=== PATIENT | male | born 1975 | race American Indian/Alaskan Native ===

== ENCOUNTER 2022-07-06 22:25 | Observation (INO) ==
[2022-07-06] MEDS ORDERED: 0.9 % SODIUM CHLORIDE 1,000 ML IV ONE (22:38)
[2022-07-06] MEDS ORDERED: KETOROLAC 30 MG/ML VIAL IV ONE (22:48)
--- NOTE | 2022-07-06 22:48 | Emergency Department Note ---
Skin/Abscess/FB HPI General Chief complaint: Skin/Abscess/Rash Stated complaint: needs abscess drained Time Seen by Provider: 07/06/22 22:29 Source: patient Mode of arrival: ambulatory Limitations: no limitations History of Present Illness HPI Narrative: Narrative: Patient presents ED with complaints of an abscess on his neck as been worsening over the last week. Patient reports that this is chronic for him and had to have it drain but it has gotten bigger now and is causing him discomfort. He rates the pain 7/10. States he cannot sleep. He states that last time he was taken to surgery by Dr. Marrero patient denies fever, chills, nausea, vomiting, abdominal pain, extremity weakness, extremity numbness, bowel or bladder incontinence. Patient denies any other alleviating or aggravating factors.ed. Related Data Home Medications Medication Instructions Recorded Confirmed levothyroxine 88 mcg tablet 1 tab PO QDAY 08/14/21 09/08/21 (Synthroid) metformin 500 mg tablet,extended 1 tab PO QDAY 08/14/21 09/08/21 release 24 hr doxycycline hyclate 100 mg capsule 100 mg PO BID 09/26/21 09/26/21 Previous Rx's Medication Instructions Recorded adalimumab 40 mg/0.4 mL See Rx Instructions subcut 01/06/22 subcutaneous pen kit (Humira(CF) .COMPLEX #12 ea Pen) sulfamethoxazole 800 1 tab PO BID 14 days #28 tabs 07/07/22 mg-trimethoprim 160 mg tablet (Bactrim DS) Allergies Allergy/AdvReac Type Severity Reaction Status Date / Time No Known Drug Allergies Allergy Verified 03/12/22 12:04 Review of Systems ROS ROS Narrative: Narrative: All systems ED: reviewed and negative except as stated. PFS Narrative Patient History Narrative: Narrative: Medical/Surgical/Family History All Active Problems (Updated 07/07/22 @ 01:17 by Gokul Rogers DO) Dactylitis (Chronic) Pain of right hand (Chronic) Swelling of right hand (Chronic) Stiffness in joint (Chronic) Weakness (Chronic) Muscle ache (Chronic) Muscle cramping (Chronic) Rash (Chronic) Bruising (Chronic) Itching (Chronic) Change in mole (Chronic) Skin lesion (Chronic) [place] (Chronic) Abscess of neck (Chronic) Decreased range of motion (Chronic) Scarring of skin (Chronic) Inflammatory arthritis (Acute) Polyarthralgia (Acute) Back pain (Acute) Spondyloarthritis (Chronic) Encounter for long-term current use of high risk medication (Chronic) custodial current use of systemic steroids (Acute) Hidradenitis suppurativa (Chronic) Trigger finger (Acute) Hidradenitis suppurativa (Chronic) High blood pressure (Acute) Chest pain, non-cardiac (Acute) Abscess, neck (Acute) Sepsis (Acute) Medical History Abscess of back Abscess of neck Ankylosing spondylitis Back pain Bruising Change in mole [place] Multiple Dactylitis Decreased range of motion Right Hand Encounter for long-term current use of high risk medication Hidradenitis suppurativa Inflammatory arthritis Itching custodial current use of systemic steroids Muscle ache Muscle cramping Pain of right hand 1st MCP Polyarthralgia Rash Scarring of skin Contracted Tissues Skin lesion Spondyloarthritis Stiffness in joint Swelling of right hand Trigger finger Weakness Surgical History History of incision and drainage 08/14/2021-I & D of posterior neck abscess Family History Other No pertinent family history Social History Smoking Status: Current every day smoker Alcohol Intake Frequency: does not drink Substance Use: does not use Exam Narrative Narrative: Narrative: General Limitations: no limitations General appearance: Absent in distress ENT ENT: Present normal oropharynx and mucous membranes moist Expanded Neck Neck image: 1. Large area of erythema, fluctuance and tenderness to palpation consistent with abscess Respiratory Respiratory: Present normal lung sounds bilaterally; Absent respiratory distress Cardiovascular Cardiovascular: Present normal rhythm and tachycardia Extremities Extremities: Present normal inspection and normal capillary refill Neurological Neurological: Present oriented X3 and normal gait Psychiatric Psychiatric: Present normal affect and normal mood Skin Skin: Present warm (WNL) and intact Course Course Course Narrative: Patient was evaluated for concerns of an abscess on his neck. Patient had a large erythematous abscess on the posterior aspect of his neck. He was tachycardic upon arrival. EKG was obtained is unremarkable. Blood cultures were obtained. Patient was given IV fluids. His lactic acid was within normal limits. Labs revealed that patient had elevated white cell count. Patient made sepsis criteria with leukocytosis, tachycardia and source of infection. Once blood cultures were obtained patient was given IV Rocephin as well as IV and vancomycin. He was given IV Toradol for his discomfort. Ultrasound of the neck was obtained and showed that patient had a large posterior abscess measuring a pproximately 6 to 7 x 7 cm. It was my recommendation that patient have a CT of the neck. Patient refused CT of the neck stating that he is claustrophobic and he would have to be under general anesthesia to get the CT. I advised him that it is an open CT and that I could give him some anxiety medication. Patient adamantly refused stating that he will not get the CT done. I discussed the case with general surgeon on-call, Dr. Hoover, who states that he did not feel comfortable taking patient to the OR for I&D without a CT of the neck to see the possibility of involvement of underlying structures. I explained this to the patient he still refused CT. due to patient's continued refusal CT the general surgeons that we will go ahead and admit to his service and treat patient with IV antibiotics for now. Patient is amenable to being admitted to the hospital and is expressing verbal understanding agreement of plan. Reevaluation(s) Reevaluation #1: Patient remains hemodynamically stable. No new complaints at this time. Time: 23:35 Consultations Consultation #1: Case discussed with on-call surgeon, Dr. Hoover, who states that he did not feel comfortable performing I&D without a CT and recommends that patient have a CT of the neck. Time: 01:10 Vital Signs Vital signs: Vital Signs Temperature 97.4 F 07/06/22 22:26 Pulse Rate 127 H 07/06/22 22:26 Respiratory Rate 18 07/06/22 22:26 Blood Pressure 146/94 07/06/22 22:26 Pulse Oximetry (%) 97 07/06/22 22:26 Oxygen Delivery Method Room Air 07/06/22 22:26 Temperature 97.4 F 07/06/22 22:26 Pulse Rate 105 H 07/07/22 00:52 Respiratory Rate 18 07/06/22 22:26 Blood Pressure 116/86 07/06/22 23:50 Pulse Oximetry (%) 93 07/07/22 00:52 Oxygen Delivery Method Room Air 07/06/22 22:26 [facility] MDM Narrative Medical decision making narrative: Narrative: Sepsis Sepsis Identified: Yes Time Zero: 2330 Differential Diagnosis Differential Diagnosis: Soft tissue neck abscess, sepsis Medical Records Medical records reviewed: Yes I reviewed the patient's medical records. Lab Data Lab results reviewed: Yes I reviewed the patient's lab results. 07/06/22 23:31 Labs: Lab Results 07/06/22 07/06/22 07/06/22 Range/Units 23:05 23:06 23:24 WBC (4.5-11.0) K/mcL RBC (4.63-6.08) M/mcL Hgb (13.7-17.5) g/dL Hct (40.1-51.0) % POC Hct 47.0 (41-55) MCV (80.0-100.0) fL MCH (26.0-34.0) pg MCHC (31.0-36.0) g/dL RDW (11.5-14.5) % Plt Count (140-440) K/mcL MPV (8.8-12.5) fL Immature Gran % (Auto) (0.0-0.5) % Neut % (Auto) (38.0-78.0) % Lymph % (Auto) (15.5-49.0) % Hart % (Auto) (1.0-12.0) % Eos % (Auto) (0.0-7.0) % Baso % (Auto) (0.0-2.0) % Lymph # (Auto) (1.50-4.80) K/mcL Hart # (Auto) (0.10-0.90) K/mcL Eos # (Auto) (0.00-0.70) K/mcL Baso # (Auto) (0.00-0.30) K/mcL Immature Gran # (0.00-0.05) K/mcl Absolute Neutrophils (1.80-8.00) K/mcL POC VBG pH 7.41 7.43 H (7.32-7.42) POC VBG pCO2 at Temp 43.3 40.9 L (41-51) POC VBG pO2 24 L 40 (25-40) POC VBG HCO3 27.2 27.4 (24-28) POC VBG Total CO2 29.0 29.0 (25-29) POC Venous O2 Sat 44.0 77.0 H (40-70) POC VBG Base Excess 3.0 H 3.0 H (-2-2) VBG Lactic Acid 1.7 1.2 (0.5-2) POC Sodium 137 (133-145) POC Potassium 3.6 (3.3-5.1) POC Chloride 99 (96-108) POC Total CO2 28.0 (22-30) POC BUN 9 (6-20) POC Creatinine 0.7 (0.6-1.2) POC Glucose 158 H (70-105) POC WB Ioniz Calcium 1.72 H* (1.16-1.32) Total Bilirubin (0.1-1.0) mg/dL Direct Bilirubin (0-0.3) mg/dL AST (<40) U/L ALT (<40) U/L Alkaline Phosphatase (39-117) U/L Total Protein (5.9-8.4) gm/dL Albumin (3.2-5.2) gm/dL Globulin (2.2-3.7) gm/dL 07/06/22 07/06/22 Range/Units 23:29 23:31 WBC 16.6 H (4.5-11.0) K/mcL RBC 4.58 L (4.63-6.08) M/mcL Hgb 14.5 (13.7-17.5) g/dL Hct 43.8 (40.1-51.0) % POC Hct (41-55) MCV 95.6 (80.0-100.0) fL MCH 31.7 (26.0-34.0) pg MCHC 33.1 (31.0-36.0) g/dL RDW 12.5 (11.5-14.5) % Plt Count 351 (140-440) K/mcL MPV 9.8 (8.8-12.5) fL Immature Gran % (Auto) 1.0 H (0.0-0.5) % Neut % (Auto) 74.7 (38.0-78.0) % Lymph % (Auto) 15.1 L (15.5-49.0) % Hart % (Auto) 7.8 (1.0-12.0) % Eos % (Auto) 1.2 (0.0-7.0) % Baso % (Auto) 0.2 (0.0-2.0) % Lymph # (Auto) 2.51 (1.50-4.80) K/mcL Hart # (Auto) 1.30 H (0.10-0.90) K/mcL Eos # (Auto) 0.20 (0.00-0.70) K/mcL Baso # (Auto) 0.04 (0.00-0.30) K/mcL Immature Gran # 0.16 H (0.00-0.05) K/mcl Absolute Neutrophils 12.37 H (1.80-8.00) K/mcL POC VBG pH (7.32-7.42) POC VBG pCO2 at Temp (41-51) POC VBG pO2 (25-40) POC VBG HCO3 (24-28) POC VBG Total CO2 (25-29) POC Venous O2 Sat (40-70) POC VBG Base Excess (-2-2) VBG Lactic Acid (0.5-2) POC Sodium (133-145) POC Potassium (3.3-5.1) POC Chloride (96-108) POC Total CO2 (22-30) POC BUN (6-20) POC Creatinine (0.6-1.2) POC Glucose (70-105) POC WB Ioniz Calcium (1.16-1.32) Total Bilirubin 0.6 (0.1-1.0) mg/dL Direct Bilirubin < 0.2 (0-0.3) mg/dL AST 43 H (<40) U/L ALT 56 H (<40) U/L Alkaline Phosphatase 60 (39-117) U/L Total Protein 8.6 H (5.9-8.4) gm/dL Albumin 3.7 (3.2-5.2) gm/dL Globulin 4.9 H (2.2-3.7) gm/dL Radiology Data Radiology results reviewed: Yes I reviewed the patient's radiology results. Radiology results narrative: Soft tissue the neck obtained which revealed a large abscess in the posterior neck region measuring about 7 cm EKG Data EKG #1: EKG attestation: Yes I reviewed and interpreted this EKG. EKG shows normal: sinus rhythm Rate: tachycardia (122) Rhythm: NSR Cook/QRS: normal Heart block present: None ST segment elevation in: None ST segment depression in: None QTc: normal QRS morphology: Present normal Interpretation: no acute changes Core Measures AMI Core Measures Followed: Yes Discharge Plan Patient/Caregiver Discharge Instructions Pt seen by RN EXAMINER/PA only: No Clinical Impression: Abscess, neck, Sepsis Instructions: Abscess (ED) Patient Disposition: Xfer As Outpt/Obs ([facility]) Condition: Fair Follow up with: Adan Marrero MD [Physician] - 07/10/22 (Posterior neck soft tissue abscess) Daquan Carrasco ARNP [Primary Care Provider] - 07/10/22 (Neck soft tissue abscess) Prescriptions: New sulfamethoxazole-trimethoprim [Bactrim DS] 800-160 mg tablet 1 tab PO BID 14 Days Qty: 28 0RF No Action Humira(CF) Pen 40 mg/0.4 mL pen injector kit See Rx Instructions subcut .COMPLEX Qty: 12 1RF Dose Instruction: inject one - 40 mg/0.4 mL pen every 2 weeks Rx Instructions: inject one - 40 mg/0.4 mL pen every week doxycycline hyclate 100 mg capsule 100 mg PO BID levothyroxine [Synthroid] 88 mcg tablet 1 tab PO QDAY metformin 500 mg tablet extended release 24 hr 1 tab PO QDAY
[2022-07-06 23:09] LABS: POC Calcium, Ionized 1.72 (1.16-1.32); POC Creatinine 0.7 (0.6-1.2); POC Potassium 3.6 (3.3-5.1)
[2022-07-06] MEDS ORDERED: cefTRIAXone 2 GM in DEXTROSE 5% IN WATER 50 ML IV ONE (23:42)
[2022-07-06] MEDS ORDERED: VANCOMYCIN 1,000 MG in 0.9 % SODIUM CHLORIDE 250 ML IV ONE (23:44)
[2022-07-06] MEDS ORDERED: diphenhydrAMINE 50 MG/ML VIAL IV ONE (23:54)
[2022-07-07 00:13] LABS: Basophils # (Auto) 0.04 K/mcL (0.00-0.30); Basophils % (Auto) 0.2 % (0.0-2.0); Eosinophils % (Auto) 1.2 % (0.0-7.0); Hematocrit 43.8 % (40.1-51.0); Hemoglobin 14.5 g/dL (13.7-17.5); Lymphocytes # (Auto) 2.51 K/mcL (1.50-4.80); Lymphocytes % (Auto) 15.1 % (15.5-49.0); Mean Cell Volume 95.6 fL (80.0-100.0); Mean Corpuscular HGB Conc 33.1 g/dL (31.0-36.0); Mean Platelet Volume 9.8 fL (8.8-12.5); Monocytes % (Auto) 7.8 % (1.0-12.0); Neutrophils % (Auto) 74.7 % (38.0-78.0); Platelet Count 351 K/mcL (140-440); RBC 4.58 M/mcL (4.63-6.08); Red Cell Distribution Width 12.5 % (11.5-14.5); WBC 16.6 K/mcL (4.5-11.0)
[2022-07-07 00:36] LABS: ALT/SGPT 56 U/L (<40); AST/SGOT 43 U/L (<40); Albumin 3.7 gm/dL (3.2-5.2); Alkaline Phosphatase 60 U/L (39-117); Bilirubin,Direct < 0.2 mg/dL (0-0.3); Bilirubin,Total 0.6 mg/dL (0.1-1.0); Globulin 4.9 gm/dL (2.2-3.7)
--- NOTE | 2022-07-07 01:51 | Ultrasound Report ---
CLINICAL INFORMATION: Posterior neck swelling. COMPARISON: None. FINDINGS: A 7 cm complex fluid collection or, less likely, mass is seen in the posterior lower neck region. IMPRESSION: 7 cm complex fluid collection likely an abscess.. Suggest soft tissue neck CT Interpreted and Authenticated by: Adan Paredes 07/07/22
[2022-07-07] MEDS ORDERED: morphine 2 MG/ML VIAL IV ONE (02:04)
[2022-07-07] MEDS ORDERED: NICOTINE 14 MG PATCH TOPICAL ONE (02:16)
--- NOTE | 2022-07-07 02:44 | General Surgery Consult Note ---
HPI Date of Consult Consult Date: 07/07/22 Requesting physician: Gokul Rogers Primary Care Provider: LOR Ambrose Consult Narrative Patient Information: Note initiated : 07/07/22 at 2:26 am Service Date, if different from initiated Date: [] Patient: Андрей Alan 46 y/o M admitted on for needs abscess drained. Chief Complaint: [] Андрей is seen in consultation tonight with a large fluctuant recurrent abscess of the Right Posterior Neck. He has had many years of focally recurrent infections in the area related to Hidradenitis Suppurativa. 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 He chronically on Humira and Steroids for the Hidradenitis and an Inflammatory Arthritis but has stopped the Humira some time ago which he feels has resulted in recurrence of the Posterior Neck Abscess. An US was done and a CT Scan recommended which he's declined due to issues with claustrophobia. He denies cardiac or pulmonary issues. He is not on any oral anticoagulants. He has diabetes and is on Metformin. He has not yet started therapy for his recently diagnosed lymphoma. Chief complaint: Posterior Neck Abscess Reason for consult: Posterior Neck Abscess cc:: CC: Review of Systems All systems: reviewed and no additional remarkable complaints except as stated Constitutional Additional comments: see HPI EENT Additional comments: see HPI Cardiovascular Additional comments: no chest pains Respiratory Additional comments: no cough or SOB Gastrointestinal Additional comments: no issues Genitourinary Additional comments: no changes Integumentary Additional comments: no changes Neurological Additional comments: no changes Hematologic/Lymphatic Additional comments: see HPI PFSH PFSH All Active Problems Dactylitis (Chronic) Pain of right hand (Chronic) Swelling of right hand (Chronic) Stiffness in joint (Chronic) Weakness (Chronic) Muscle ache (Chronic) Muscle cramping (Chronic) Rash (Chronic) Bruising (Chronic) Itching (Chronic) Change in mole (Chronic) Skin lesion (Chronic) [place] (Chronic) Abscess of neck (Chronic) Decreased range of motion (Chronic) Scarring of skin (Chronic) Inflammatory arthritis (Acute) Polyarthralgia (Acute) Back pain (Acute) Spondyloarthritis (Chronic) Encounter for long-term current use of high risk medication (Chronic) half-way current use of systemic steroids (Acute) Hidradenitis suppurativa (Chronic) Trigger finger (Acute) Hidradenitis suppurativa (Chronic) High blood pressure (Acute) Chest pain, non-cardiac (Acute) Abscess, neck (Acute) Sepsis (Acute) Medical History Abscess of back Abscess of neck Ankylosing spondylitis Back pain Bruising Change in mole [place] Multiple Dactylitis Decreased range of motion Right Hand Encounter for long-term current use of high risk medication Hidradenitis suppurativa Inflammatory arthritis Itching half-way current use of systemic steroids Muscle ache Muscle cramping Pain of right hand 1st MCP Polyarthralgia Rash Scarring of skin Contracted Tissues Skin lesion Spondyloarthritis Stiffness in joint Swelling of right hand Trigger finger Weakness Surgical History History of incision and drainage 08/14/2021-I & D of posterior neck abscess Family History Other No pertinent family history Social History marital status: single smoking status: Current every day smoker alcohol intake frequency: does not drink substance use type: does not use MEDS/ALLERGIES Home Medications and Allergies Home Medications Medication Instructions Recorded Confirmed Type levothyroxine 88 mcg tablet 1 tab PO QDAY 08/14/21 09/08/21 History (Synthroid) metformin 500 mg tablet,extended 1 tab PO QDAY 08/14/21 09/08/21 History release 24 hr doxycycline hyclate 100 mg capsule 100 mg PO BID 09/26/21 09/26/21 History adalimumab 40 mg/0.4 mL See Rx Instructions subcut 01/06/22 Rx subcutaneous pen kit (Humira(CF) .COMPLEX #12 ea Pen) sulfamethoxazole 800 1 tab PO BID 14 days #28 tabs 07/07/22 Rx mg-trimethoprim 160 mg tablet (Bactrim DS) Allergies Allergy/AdvReac Type Severity Reaction Status Date / Time No Known Drug Allergies Allergy Verified 03/12/22 12:04 Physical Examination Vital Signs Vital signs: Temp Pulse Resp BP Pulse Ox O2 Del Method 97.4 F 106 H 18 139/95 94 Room Air 07/06/22 22:26 07/07/22 01:52 07/06/22 22:26 07/07/22 01:52 07/07/22 01:52 07/07/22 01:50 General physical appearance General physical exam: other (non toxic, NAD, fully conversant ) Eyes Eye exam: normal ocular movement ENT ENT exam: other (normal facial exam ) Head Head exam IM: Present atraumatic and normocephalic Neck Neck exam: other (there is chronic scarring across the posterior neck with a large fluctuant area of the Right Neck Base, there is no active drainage) Cardiovascular Cardiovascular exam IM: Present normal rate and rhythm Respiratory Respiratory exam: normal respiratory effort Abdomen Abdomen: Present soft and non tender Integumentary Integumentary: Present other (neck skin changes as noted, otherwise normal appearing intact skin ) Neurologic Neurologic: Present other (grossly intact ) Psychiatric Psychiatric: Present oriented to time, oriented to person and oriented to place Results Labs 07/06/22 23:31 Labs: Abnormal lab results 07/06/22 07/06/22 07/06/22 Range/Units 23:05 23:06 23:24 WBC (4.5-11.0) K/mcL RBC (4.63-6.08) M/mcL Immature Gran % (Auto) (0.0-0.5) % Lymph % (Auto) (15.5-49.0) % Clark # (Auto) (0.10-0.90) K/mcL Immature Gran # (0.00-0.05) K/mcl Absolute Neutrophils (1.80-8.00) K/mcL POC VBG pH 7.43 H (7.32-7.42) POC VBG pCO2 at Temp 40.9 L (41-51) POC VBG pO2 24 L (25-40) POC Venous O2 Sat 77.0 H (40-70) POC VBG Base Excess 3.0 H 3.0 H (-2-2) POC Glucose 158 H (70-105) POC WB Ioniz Calcium 1.72 H* (1.16-1.32) AST (<40) U/L ALT (<40) U/L Total Protein (5.9-8.4) gm/dL Globulin (2.2-3.7) gm/dL 07/06/22 07/06/22 Range/Units 23:29 23:31 WBC 16.6 H (4.5-11.0) K/mcL RBC 4.58 L (4.63-6.08) M/mcL Immature Gran % (Auto) 1.0 H (0.0-0.5) % Lymph % (Auto) 15.1 L (15.5-49.0) % Clark # (Auto) 1.30 H (0.10-0.90) K/mcL Immature Gran # 0.16 H (0.00-0.05) K/mcl Absolute Neutrophils 12.37 H (1.80-8.00) K/mcL POC VBG pH (7.32-7.42) POC VBG pCO2 at Temp (41-51) POC VBG pO2 (25-40) POC Venous O2 Sat (40-70) POC VBG Base Excess (-2-2) POC Glucose (70-105) POC WB Ioniz Calcium (1.16-1.32) AST 43 H (<40) U/L ALT 56 H (<40) U/L Total Protein 8.6 H (5.9-8.4) gm/dL Globulin 4.9 H (2.2-3.7) gm/dL Diabetes panel 07/06/22 Range/Units 23:29 AST 43 H (<40) U/L ALT 56 H (<40) U/L Alkaline Phosphatase 60 (39-117) U/L Total Protein 8.6 H (5.9-8.4) gm/dL Albumin 3.7 (3.2-5.2) gm/dL Calcium panel 07/06/22 Range/Units 23:29 Albumin 3.7 (3.2-5.2) gm/dL Adrenal panel 07/06/22 Range/Units 23:29 Total Bilirubin 0.6 (0.1-1.0) mg/dL AST 43 H (<40) U/L ALT 56 H (<40) U/L Alkaline Phosphatase 60 (39-117) U/L Total Protein 8.6 H (5.9-8.4) gm/dL Albumin 3.7 (3.2-5.2) gm/dL All other labs normal. A/P Assessment and plan (1) Abscess of neck: Assessment and plan: Large fluctuant Posterior Neck Abscess Incision and Drainage is recommended and discussed at length CT scan is also recommended and rationale for recommendation in terms of assisting with adequate drainage and operative planning is reviewed but declined Risks, benefits, potential complications and alternative treatment plans are all reviewed at length and he is agreeable to the plan of coming in overnight for IV ABs with plans to proceed to the OR AL tomorrow Status: Chronic Time Spent With Patient Time: Total time spent is greater than 50% in coordination of care (as documented) at patient's floor/unit and/or counseling patient:
[2022-07-07] MEDS: DEXTROSE 5%-LR 1,000 ML IV SCH ×2 (03:05→16:33)
[2022-07-07] MEDS: HYDROmorphone 0.5 MG/0.5 ML SYRINGE IV PRN ×3 (05:36→08:56)
--- NOTE | 2022-07-07 09:33 | EKG ---
[facility] Test Date: 2022-07-06 Pat Name: Андрей Alan Department: ED Room: Gender: Male [employer]: SE : 1975 Requested By: Gokul Rogers Order Number: [id number] Reading MD: Mj Wilkinson Measurements Intervals [place] Rate: 122 P: 66 WI: 153 QRS: 40 QRSD: 90 T: 38 QT: 303 QTc: 432 Interpretive Statements Sinus tachycardia Electronically Signed On 07-07-2022 9:33:08 PST by Mj Wilkinson /store/M0/[id number]/[id number].pdf
[2022-07-07] MEDS ORDERED: KETAMINE 50 MG/ML Syringe (ANEST) IV ONE (10:07)
[2022-07-07] MEDS ORDERED: LIDOCAINE HCL/PF 100 MG/5 ML SYRINGE IV ONE (10:07)
[2022-07-07] MEDS ORDERED: GLYCOPYRROLATE 0.2 MG/ML VIAL IV ONE (10:07)
[2022-07-07] MEDS ORDERED: DEXAMETHASONE 10 MG/ML VIAL ONE (10:07)
[2022-07-07] MEDS ORDERED: MIDAZOLAM 2 MG/2 ML VIAL ONE (10:07)
[2022-07-07] MEDS ORDERED: PHENYLephrine 1 MG/10 ML SYRINGE (ANEST) ONE (10:07)
[2022-07-07] MEDS ORDERED: KETOROLAC 15 MG/ML VIAL ONE (10:07)
[2022-07-07] MEDS ORDERED: fentaNYL 100 MCG/2 ML VIAL IV ONE (10:07)
[2022-07-07] MEDS ORDERED: ONDANSETRON 4 MG/2 ML VIAL ONE (10:07)
[2022-07-07] MEDS ORDERED: PROPOFOL 200 MG/20 ML VIAL IV ONE (10:07)
[2022-07-07] MEDS ORDERED: HYDROmorphone 0.5 MG/0.5 ML SYRINGE IV PRN (10:27)
[2022-07-07] MEDS ORDERED: LACTATED RINGERS 250 ML IV PRN (10:27)
[2022-07-07] MEDS ORDERED: ACETAMINOPHEN 1,000 MG/100 ML BAG IV ONE (10:27)
[2022-07-07] MEDS ORDERED: METHOCARBAMOL 1,000 MG/10 ML VIAL IV PRN (10:27)
[2022-07-07] MEDS ORDERED: NALOXONE HCL 0.4 MG/ML VIAL IV PRN (10:27)
[2022-07-07] MEDS ORDERED: FLUMAZENIL 0.1 MG/ML ML IV PRN (10:27)
[2022-07-07] MEDS ORDERED: IPRATROPIUM/ALBUTEROL 3 ML AMPUL.NEB NEB PRN (10:27)
[2022-07-07] MEDS ORDERED: fentaNYL 100 MCG/2 ML VIAL IV PRN (10:27)
[2022-07-07] MEDS ORDERED: MEPERIDINE 25 MG/ML VIAL IV PRN (10:27)
[2022-07-07] MEDS ORDERED: METOPROLOL TARTRATE 5 MG/5 ML VIAL IV PRN (10:27)
[2022-07-07] MEDS ORDERED: LABETALOL 5 MG/ML ML IV PRN (10:27)
[2022-07-07] MEDS ORDERED: ONDANSETRON 4 MG/2 ML VIAL IV PRN (10:27)
[2022-07-07] MEDS ORDERED: LACTATED RINGERS 1,000 ML IV SCH (10:30)
--- NOTE | 2022-07-07 10:56 | Brief Operative Note ---
Brief Operative Note Date of procedure: 07/07/22 Pre-op diagnosis: Large multifocal posterior neck abscess Post-op diagnosis: same Procedure: Incision and drainage of large multifocal neck abscess Grafts/Implants: No Anesthesia: GETA Findings: large multifocal multiloculated posterior neck abscess with drainage of roughly 100cc of foul smelling pus Complications: none Surgeon: Elie Hoover Estimated blood loss (cc): 20 Specimens Removed/Pathology: other (fluid for gram stain and culture ) Condition: stable Disposition: PACU
[2022-07-07] MEDS ORDERED: oxyCODONE HCL 5 MG TABLET PO PRN (11:10)
[2022-07-07] MEDS ORDERED: SULFAMETHOXAZOLE/TRIMETHOPRIM 1 TABLET PO SCH (11:15)
[2022-07-08] MEDS ORDERED: metFORMIN 500 MG TAB.XL.24H PO SCH (08:00)
[2022-07-08] MEDS ORDERED: LEVOTHYROXINE 88 MCG TABLET PO SCH (09:00)
--- NOTE | 2022-07-13 08:36 | Operative Note ---
DATE OF OPERATION: 07/07/2022 PREOPERATIVE DIAGNOSIS: Large, complicated, multiloculated posterior neck abscess. POSTOPERATIVE DIAGNOSIS: Large, complicated, multiloculated posterior neck abscess. OPERATIVE PROCEDURE: Incision and drainage of complicated, multiloculated posterior neck abscess. SURGEON: Elie Hoover M.D. ANESTHESIA: General. POSITION: Left lateral decubitus. PREOPERATIVE MEDICATION: Zosyn 3.375 grams IV. INDICATIONS FOR PROCEDURE: The patient is a 46-year-old male who is roughly a year out or so from a prior I and D of a posterior neck abscess. He has had recurrent bouts of this over the course of his lifetime from what he describes as chronic hidradenitis of the posterior neck. He does not have it in any other location, but has had repetitive issues with abscess formation on the back of his neck. He presented to the emergency room late at night in a lot of pain and discomfort with a very large area of swelling and had some fluctuation over the posterior neck. Ultrasound was performed, which demonstrated a large, complicated-appearing abscess in the soft tissues. CT scan was advised, but he declined. We were asked to see him in consultation and agreed to admit him to the hospital for incision and drainage the following morning. Risks, benefits, potential complications, and alternative treatment options were all discussed at length. He understood our plan and the rationale for it and gave full informed consent and wished to proceed. PROCEDURE IN DETAIL: The patient was taken to the OR where he was placed in a left lateral decubitus position after he was placed under general anesthesia and an LMA was applied. The area of the posterior neck was broadly prepped and draped in a sterile fashion. There was a central area of necrosis that was roughly 3 x 3 cm in dimension in the area of maximal fluctuance in the right posterior neck. This was excised sharply to a large gush of purulent material and debris, and we evacuated 100 to 200 mL of pus out of the area. Cultures were taken and sent as well. There were multiple loculations that were broken up bluntly and we irrigated the area out extensively following this. Several additional countertraction sites were identified and noted and separately packed open and then we packed the main abscess cavity with a moistened Kerlix and a single piece for extraction later after assuring that all active bleeding or hemorrhage had been controlled and some Merlene powder was applied topically as well. The patient was awakened, the LMA was removed, and he was transported to the recovery in good condition. He tolerated the procedure well. ESTIMATED BLOOD LOSS: Roughly 25 to 50 mL. DRAINS: None. Wound was packed open as discussed. Cultures are pending. BW:roly Job ID: [id number] Doc ID: [id number] Elie Hoover M.D.
== END 2022-07-07 16:50 | disposition home or self-care (01) ==
LOC: MEDSUR 22:25 → ED 22:25 → MEDSUR 07-07 02:53
PROVIDERS: ADMIT Surgery Surgical Critical Care; ATTEND Surgery Surgical Critical Care

== ENCOUNTER 2024-01-13 23:25 | Observation (INO) ==
[2024-01-13] MEDS ORDERED: IOPAMIDOL 100 ML BOTTLE IV ONE (23:26)
[2024-01-14] MEDS: LORazepam 2 MG/ML VIAL IV ONE (00:10)
[2024-01-14 00:18] LABS: Basophils # (Auto) 0.02 K/mcL (0.00-0.30); Basophils % (Auto) 0.2 % (0.0-2.0); Eosinophils # (Auto) 0.24 K/mcL (0.00-0.70); Eosinophils % (Auto) 2.1 % (0.0-7.0); Hematocrit 46.7 % (40.1-51.0); Hemoglobin 15.8 g/dL (13.7-17.5); Lymphocytes # (Auto) 2.46 K/mcL (1.50-4.80); Lymphocytes % (Auto) 21.3 % (15.5-49.0); Mean Cell Volume 95.7 fL (80.0-100.0); Mean Corpuscular HGB Conc 33.8 g/dL (31.0-36.0); Mean Platelet Volume 9.2 fL (8.8-12.5); Monocytes # (Auto) 0.88 K/mcL (0.10-0.90); Monocytes % (Auto) 7.6 % (1.0-12.0); Neutrophils % (Auto) 68.5 % (38.0-78.0); Platelet Count 277 K/mcL (140-440); RBC 4.88 M/mcL (4.63-6.08); Red Cell Distribution Width 12.3 % (11.5-14.5); WBC 11.5 K/mcL (4.5-11.0)
[2024-01-14 00:43] LABS: ALT/SGPT 19 U/L (<40); AST/SGOT 16 U/L (<40); Albumin 4.2 gm/dL (3.2-5.2); Albumin/Globulin Ratio 1.2 (1.0-2.3); Alkaline Phosphatase 55 U/L (39-117); Bilirubin,Total 0.3 mg/dL (0.1-1.0); Blood Urea Nitrogen 12 mg/dL (6-20); Calcium 9.1 mg/dL (8.6-10.4); Carbon Dioxide 23 mmol/L (22-30); Chloride 105 mmol/L (96-108); Globulin 3.5 gm/dL (2.2-3.7); Glomerular Filtration Rate 110; Glucose 142 mg/dL (70-105); Potassium 3.5 mmol/L (3.3-5.1); Sodium 141 mmol/L (133-145)
[2024-01-14] MEDS: morphine 2 MG/ML VIAL IV PRN (01:25)
[2024-01-14] MEDS: ONDANSETRON 4 MG/2 ML VIAL IV ONE (01:26)
[2024-01-14] MEDS: 0.9 % SODIUM CHLORIDE 1,000 ML IV SCH (03:12)
[2024-01-14] MEDS: VANCOMYCIN 1 GM VIAL IP SCH (03:12)
[2024-01-14] MEDS: CEFEPIME 2 GM VIAL IV ONE (04:23)
[2024-01-14] MEDS: VANCOMYCIN 1 GM VIAL IV SCH (04:25)
[2024-01-14 05:47] LABS: Appearance,Urine CLEAR (Clear); Bilirubin,Urine NEGATIVE (Negative); Color,Urine LT. YELLOW; Glucose,Urine (UA) NEGATIVE (Negative); Ketones,Urine NEGATIVE (Negative); Leukocyte Esterase,Urine NEGATIVE /uL (Negative); Nitrate,Urine NEGATIVE (Negative); Protein,Urine NEGATIVE (Negative); Urine Blood NEGATIVE ery/mcL (Negative); Urobilinogen,Urine Normal
[2024-01-14 05:52] LABS: Prothrombin Time 13.6 sec (11.9-14.5)
[2024-01-14] MEDS: NICOTINE 14 MG PATCH TOPICAL ONE (08:19)
[2024-01-14] MEDS: NICOTINE 14 MG PATCH TOPICAL SCH (08:33)
[2024-01-14] MEDS ORDERED: SCOPOLAMINE 1 PATCH PATCH TOPICAL PRN (10:22)
[2024-01-14] MEDS ORDERED: PROPOFOL 200 MG/20 ML VIAL IV ONE (10:33)
[2024-01-14] MEDS ORDERED: MIDAZOLAM 2 MG/2 ML VIAL ONE (10:33)
[2024-01-14] MEDS ORDERED: fentaNYL 100 MCG/2 ML VIAL ONE (10:33)
[2024-01-14] MEDS ORDERED: KETAMINE 50 MG/ML Syringe IV ONE (10:33)
[2024-01-14] MEDS ORDERED: GLYCOPYRROLATE 0.2 MG/ML VIAL IV ONE (10:34)
[2024-01-14] MEDS ORDERED: LIDOCAINE 2% PF 5 ML VIAL ONE (10:34)
[2024-01-14] MEDS ORDERED: FAMOTIDINE/PF 20 MG/2 ML VIAL IV ONE (10:34)
[2024-01-14] MEDS ORDERED: ONDANSETRON 4 MG/2 ML VIAL ONE (10:34)
[2024-01-14] MEDS ORDERED: DEXAMETHASONE 10 MG/ML VIAL ONE (10:34)
[2024-01-14] MEDS ORDERED: DEXTROSE 50% 50 ML VIAL IV PRN (10:41)
[2024-01-14] MEDS ORDERED: DEXTROSE 31 GM ORAL.SUSP PO PRN (10:41)
[2024-01-14] MEDS ORDERED: VANCOMYCIN PER PHARMACY IV SCH (10:45)
[2024-01-14] MEDS: INSULIN LISPRO 1 UNIT/0.01 ML UNIT SQ SCH (10:53)
[2024-01-14] MEDS: VANCOMYCIN 1,000 MG in 0.9 % SODIUM CHLORIDE 250 ML IV SCH (10:54)
[2024-01-14] MEDS ORDERED: MAGNESIUM SULFATE 2 GM/50 ML BAG IV ONE (11:01)
[2024-01-14] MEDS ORDERED: PHENYLephrine 1 MG/10 ML SYRINGE (ANEST) ONE (11:20)
[2024-01-14] MEDS ORDERED: fentaNYL 100 MCG/2 ML VIAL IV PRN (11:29)
[2024-01-14] MEDS ORDERED: MEPERIDINE 25 MG/ML VIAL IV PRN (11:29)
[2024-01-14] MEDS ORDERED: ONDANSETRON 4 MG/2 ML VIAL IV PRN (11:29)
[2024-01-14] MEDS ORDERED: LACTATED RINGERS 250 ML IV PRN (11:29)
[2024-01-14] MEDS ORDERED: NALOXONE HCL 0.4 MG/ML VIAL IV PRN (11:29)
[2024-01-14] MEDS ORDERED: IPRATROPIUM/ALBUTEROL 3 ML AMPUL.NEB NEB PRN (11:29)
[2024-01-14] MEDS ORDERED: FLUMAZENIL 0.1 MG/ML ML IV PRN (11:29)
[2024-01-14] MEDS ORDERED: HYDROmorphone 0.5 MG/0.5 ML SYRINGE IV PRN (11:29)
[2024-01-14] MEDS ORDERED: KETOROLAC 30 MG/ML VIAL ONE (11:32)
[2024-01-14] MEDS ORDERED: morphine 4 MG/ML VIAL IV PRN (12:10)
[2024-01-14] MEDS ORDERED: oxyCODONE IR 5 MG TABLET PO PRN (12:10)
[2024-01-14] MEDS: LACTATED RINGERS 1,000 ML IV SCH (12:36)
[2024-01-14] MEDS: VANCOMYCIN 1,000 MG in 0.9 % SODIUM CHLORIDE 250 ML IV ONE (13:50)
[2024-01-14] MEDS: CEFEPIME 2 GM VIAL IV SCH (13:50)
[2024-01-14 16:23] LABS: Hemoglobin A1C 7.1 % Hgb (4.0-6.0)
[2024-01-14] MEDS ORDERED: VANCOMYCIN 1,500 MG in 0.9 % SODIUM CHLORIDE 500 ML IV SCH (23:00)
[2024-01-15] MEDS ORDERED: LEVOTHYROXINE 88 MCG TABLET PO SCH (09:00)
[2024-01-15] MEDS ORDERED: metFORMIN 500 MG TAB.XL.24H PO SCH (09:00)
== END 2024-01-14 16:25 ==
LOC: ED 23:25 → MEDSUR 23:25
PROVIDERS: ADMIT Family Medicine Adult Medicine; ATTEND Family Medicine Adult Medicine